=== PATIENT | female | born 1975 | race Caucasian/White ===

== ENCOUNTER 2016-09-24 12:31 | Emergency (ER) | payer MEDICAID ==
[~2016-09-24] VITALS: Wt 68.0 kg
[2016-09-24] MEDS ORDERED: CYCL-319 PO (14:14)
[2016-09-24] MEDS ORDERED: HYDR-906 PO (14:14)
[2016-09-24] MEDS ORDERED: NAPR-260 PO (14:14)
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
== END 2016-09-24 15:06 | disposition home or self-care (01) ==
LOC: FTE 12:31
DX: S09.90XA Unspecified injury of head, initial encounter (principal); S19.9XXA Unspecified injury of neck, initial encounter; V46.5XXA Car driver injured in collision with other nonmotor vehicle in traffic accident, initial encounter
CPT/HCPCS: 99284